=== PATIENT | female | born 1995 | race American Indian/Alaskan Native ===

== ENCOUNTER 2018-04-10 18:31 | Emergency (ER) | payer MEDICAID, OTHER ==
[2018-04-10 18:31] VITALS: BMI 35.0
[2018-04-10] MEDS ORDERED: Lidocaine 2% Jelly (Uro-Jet) TOP ONE (19:06)
[2018-04-10] MEDS ORDERED: Lidocaine 2% Jelly (Uro-Jet) ONE (19:36)
--- NOTE | 2018-04-10 19:46 | C.PDOC ---
History Of Present Illness 23 year old female presents to the ER with a complaint of anal/rectal pain associated with constipation. Patient has a extensive Hx of constipation. She is 22 weeks and was observed at [employer] earlier today with a normal evaluation. Denies fever, chills, nausea, or vomiting. Time Seen by Provider: 04/10/18 18:59 Chief Complaint (Nursing): GI Problem History Per: Patient History/Exam Limitations: no limitations Onset/Duration Of Symptoms: Hrs Recent travel outside of the [place]: No Past Medical History Reviewed: Historical Data, Nursing Documentation, Vital Signs Vital Signs: Last Vital Signs Temp 98.3 F 04/10/18 18:33 Pulse 94 H 04/10/18 18:33 Resp 16 04/10/18 18:33 BP 124/78 04/10/18 18:33 Pulse Ox 97 04/10/18 19:53 Family History: States: Unknown Family Hx - Social History Hx Alcohol Use: No Hx Substance Use: No Review Of Systems Constitutional: Negative for: Fever, Chills Cardiovascular: Negative for: Chest Pain, Palpitations Respiratory: Negative for: Cough, Shortness of Breath Gastrointestinal: Positive for: Rectal Pain. Negative for: Nausea, Vomiting Physical Exam - Physical Exam Appears: Non-toxic, Other (Mild distress) Skin: Normal Color, Warm, Dry Head: Atraumatic, Normacephalic Eye(s): bilateral: Normal Inspection Oral Mucosa: Moist Chest: Symmetrical, No Tenderness Cardiovascular: Rhythm Regular Respiratory: Normal Breath Sounds, No Rales, No Rhonchi, No Wheezing Gastrointestinal/Abdominal: Soft, No Tenderness, Other (Obese, Gravid) Neurological/Psych: Oriented x3, Normal Speech ED Course And Treatment O2 Sat by Pulse Oximetry: 97 (Room air) Pulse Ox Interpretation: Normal Progress Note: Rectal disimpaction perform, urojet used for lubrication, large volume of rock hard stools digitally removed, fleet enema administered to left lateral decubitus, patient reports improvement of symptoms. Medical Decision Making Medical Decision Making: acute on chronic constipation w rectal impaction, 22 wks now disempacted Disposition Doctor Will See Patient In The: Office Counseled Patient/Family Regarding: Studies Performed, Diagnosis - Disposition Disposition: HOME/ ROUTINE Disposition Time: 20:18 Condition: GOOD Forms: [employer] (Swedish) - Clinical Impression Clinical Impression: Constipation - Scribe Statement The provider has reviewed the documentation as recorded by the Scribe Zaheer Davis All medical record entries made by the Scribe were at my direction and personally dictated by me. I have reviewed the chart and agree that the record accurately reflects my personal performance of the history, physical exam, medical decision making, and the department course for this patient. I have also personally directed, reviewed, and agree with the discharge instructions and disposition.
[2018-04-10 20:31] VITALS: BP 128/78; PULSE 81; RESP 18; TEMP 99; O2SAT 98
== END 2018-04-10 20:31 | disposition home or self-care (01) ==
LOC: C.ER 18:31
DX: K59.00 Constipation, unspecified (principal)

== ENCOUNTER 2018-07-12 13:00 | Emergency (ER) | payer OTHER ==
--- NOTE | 2018-07-12 13:57 | OBHP ---
Datetime: 07/12/2018 13:50 IP Adm Impression: , intrauterine IP Admit Plan: Discharge home Admit Comment, IP Provider: A/P: 23 yo at 32+2 wks with EDC 09/03/18 with labial excoriation - stable, afebrile - labial excoration on right side, no vaginal bleeding - Cat 1 tracing, no contractions - previous C/S x1 for preeclampsia and with demise 2nd to prematurity at 26 wks - tana for repeat C/S on 08/27/18 - labor precautions given - pt has U/S appointment tomorrow - D/C home Pelvic Type - PN: Adequate Extremities - PN: Normal Abdomen - PN: Normal Back - PN: Normal Breast - PN: Normal Lungs - PN: Normal Heart - PN: Normal Thyroid - PN: Normal Neurologic - PN: Normal HEENT - PN: Normal General - PN: Normal Presentation-Admit: Vertex FHR - Baseline A Provider: 130 Membranes, Provider: Intact Contraction Comments Provider: quiet Comments, ACOG Physical Exam: minor excoriations on inner labia no vaginal bleeding Gestation - Est Wks by US: 32.2 Pool Provider: Negative EGA AdmitDate IP: 32.2 Vital Signs Provider: Reviewed; Within Normal Limits IP Chief Complaint: Vaginal bleeding NICHD Variability Prov Fetus A: Moderate 6-25bpm NICHD Accel Fetus A IP Provider: 10X10 FHR Category Provider Fetus A: Category I NICHD Decel Fetus A IP Provider: None Dilatation, Provider: C Effacement, Provider: 30 Station, Provider: -3 Genitourinary Exam: Normal DTRs - PN: Normal
--- NOTE | 2018-07-12 14:00 | OBDCSUM ---
Datetime: 07/12/2018 13:58 Discharged to, Provider: Home Follow up at, Provider: Clinic as schedule Disch Instr Activity: Normal activity Disch Instr Diet: Regular Discharge Time: 07/12/2018 13:59 Disch Referrals: None Datetime: 07/12/2018 13:57 Discharged to, Provider: Home Follow up at, Provider: clinic Disch Instr Activity: Normal activity Disch Instr Diet: Regular Discharge Instructions, Provider: Routine instructions given Discharge Time: 07/12/2018 13:57 Follow up in weeks, Provider: 2 weeks Disch Referrals: None Contraception discussed, Prov: No Discharge Diagnosis Prov Other: labial excoriation
[2018-07-12 18:13] VITALS: BP 135/82; PULSE 99; RESP 18; TEMP 98
== END 2018-07-12 14:11 | disposition home or self-care (01) ==
LOC: C.EROB 13:00
DX: O26.893 Other specified pregnancy related conditions, third trimester (principal); S30.814A Abrasion of vagina and vulva, initial encounter; Z3A.32 32 weeks gestation of pregnancy; X58.XXXA Exposure to other specified factors, initial encounter

== ENCOUNTER 2018-08-10 06:40 | Emergency (ER) | payer OTHER ==
--- NOTE | 2018-08-10 10:28 | US ---
Indication: Decreased movement Comparison: None available Technique: Real-time ultrasound was performed through the pelvis. Findings: There is a single living fetus in cephalic presentation. Amniotic fluid volume measures 19 cm, upper limits of normal. Anterior placenta. The placenta is not previa. There are no adnexal masses or cysts evident. The study was performed for the emergent evaluation of decreased movement, and the whole anatomic survey of the fetus was not performed. This should be performed on an outpatient elective basis as clinically warranted. Measurements and calculations: Fetus has a composite sonographic age of 37 weeks 4 days. This calculation is based on the biparietal diameter, head circumference, abdominal circumference, and femur length. Estimated heart rate 123.5 beats per min. Estimated weight 3223 g. Impression: Single living fetus with a composite sonographic age of 37 weeks 4 days. Estimated heart rate 123.5 beats per min. Amniotic fluid volume measures 19 cm, upper limits of normal. Additional findings as above.
[2018-08-10 10:32] LABS: SQUAMOUS EPITHIAL 16 /hpf (0-5); URINE BILIRUBIN NEGATIVE (NEGATIVE); URINE BLOOD 1+ (NEGATIVE); URINE CALCIUM OXALATE CRYSTALS FEW /hpf (<OCC); URINE CLARITY Hazy (Clear); URINE COLOR Yellow (YELLOW); URINE GLUCOSE (UA) NORMAL (Normal); URINE LEUKOCYTE ESTERASE 3+ Leu/uL (Negative); URINE PROTEIN 1+ mg/dL (NEGATIVE); URINE UROBILINOGEN NORMAL mg/dL (0.2-1.0)
[2018-08-10 10:38] LABS: URINE BACTERIA OCC (<OCC)
[2018-08-10 11:34] LABS: INR 1.1; PROTHROMBIN TIME 11.6 SECONDS (9.7-12.2)
[2018-08-10 12:48] LABS: BASO % 0.6 % (0.0-2.0); EOS % 0.6 % (0.0-4.0); HEMOGLOBIN 11.2 g/dL (11.0-16.0); LYMPH # 1.9 K/uL (1.0-4.3); LYMPH % 26.2 % (20.0-40.0); MEAN CELL VOLUME 85.8 fL (81.0-99.0); MEAN CORPUSCULAR HEMOGLOBIN 28.4 pg (27.0-31.0); MEAN CORPUSCULAR HGB CONC 33.1 g/dL (33.0-37.0); MEAN PLATELET VOLUME 10.2 fL (7.2-11.7); MONO # 0.8 K/uL (0.0-0.8); MONO % 11.1 % (0.0-10.0); NEUT # 4.4 K/uL (1.8-7.0); NEUT % 61.5 % (50.0-75.0); NRBC % 0.1 % (0.0-2.0); RBC 3.96 Mil/uL (3.80-5.20); RED CELL DISTRIBUTION WIDTH 13.5 % (11.5-14.5); WHITE BLOOD COUNT 7.1 K/uL (4.8-10.8)
[2018-08-10 12:58] LABS: ALB/GLOB RATIO 1.1 (1.0-2.1); ALBUMIN 3.3 g/dL (3.5-5.0); ALT/SGPT 23 U/L (9-52); AST/SGOT 30 U/L (14-36); BLOOD UREA NITROGEN 7 mg/dL (7-17); GFR NON-AFRICAN AMERICAN > 60
[2018-08-10 13:00] LABS: CREATININE, RANDOM URINE 289.2 mg/dL
--- NOTE | 2018-08-10 16:35 | OBDCSUM ---
Datetime: 08/10/2018 12:26 Discharged to, Provider: Home Follow up at, Provider: clinic Disch Instr Activity: Normal activity Disch Instr Diet: Regular Discharge Instructions, Provider: Routine instructions given Discharge Time: 08/10/2018 12:26 Follow up in weeks, Provider: Today's appointment Disch Referrals: None Contraception discussed, Prov: Yes Disch Activity Restrictions: No exercising; No lifting; Minimize stair-climbing; No sexual activity; Nothing in vagina - [place], tampons, douche Discharge Comment, Provider: Pt is a 23yo female with a PMH pre eclampsia who presents to [facility] complaining of decreased movement upon waking. Pt states she currently feels movem etns. Pt reports mild abdominal discomfort, a couple episodes of non bloody diarrhea. Pt denies any l eakage of fluids, vaginal bleeding, or contractions. Pt reports some mild swelling of her hands and f eet which has occured on/off during this , she has a mild headache but denies visual changes . Pt has had care, but denies taking vitamins. PMH: denies PSH: C/S 2016, 3 TOP's FH: Mother 38. Father 37 SH: denies tobacco, denies alcohol, admits to marijuana use before Home meds: denies Allergies: denies OBGYN: , cycles are 28d, 5 days of bleeding, menarche 14yo. Denies history of STD/ STI. rep rorts c/s at 24 weeks due to preeclampsia in 03/04/2017 and baby at 4 months of age. Pt has had 3 abortions 3 d/c's. Never had a pap smear Assessment and plan - IUP at 36.2 weeks per US at 12 weeks and EDC09/03/18, per [facility] records - NST Reactive and no contractions recorderd, palpated or perceived by patient. - + FM while in here and perceived by patient - PIH labs all WNL, including a P/Cr ratio in urine < 0.1 and pt aware - Serial BP's here all WNL - BPP 04/15 with Nl DANIEL and Cephalic Pt aware of results of US and Labs Aware of Major dehydration noted on UA and advised to increase po water intake Upon further questioning, pt did not know the type of Section performed at 24 weeks gestation at [facility] and states that [facility] has attempted to get records but not able to. I personnally called LD and [facility] and spoke directly with the Senior resident who located the pt's Operative report and confirmed a Classical C/S, which was suspected. The information also included t hat pt had severe HELLP syndrome at that time and spent few days in ICU after delivery to control her elevated BP's. Pt aware of these findings and of the recommendation to have a repeat C/S at 37 weeks instead of 3 9 weeks. A written note was given to the patient and addressed to Dr. Pascal at [facility] since patient had an mayte ointment today at 1300. Also copies of her labs and US were given with her instructions D/C home in Stable and Satisfactory condition. Labor precautions reviewed with patient and verbalized understanding. Pt seen, examined, assessment and plan discussed with Dr Alba Worley PGY1, Internal Medicine Resident Discharge Diagnosis Prov Other: Decreased Movement Previous C/S secondary to severe PreE Dehydration Contraception after Delivery: Undecided
[2018-08-10 16:41] VITALS: BP 115/72; PULSE 85; TEMP 97.8
== END 2018-08-10 12:41 | disposition home or self-care (01) ==
LOC: C.EROB 06:40
DX: O36.8130 Decreased fetal movements, third trimester, not applicable or unspecified (principal); O26.893 Other specified pregnancy related conditions, third trimester; E86.0 Dehydration; Z3A.36 36 weeks gestation of pregnancy

== ENCOUNTER 2018-08-14 05:47 | Inpatient (IN) | payer OTHER ==
[2018-08-14 06:41] VITALS: BMI 41.9
[2018-08-14] MEDS ORDERED: Lactated Ringer's 1,000 ML IV SCH (06:45)
[2018-08-14] MEDS ORDERED: Lactated Ringer's 1,000 ML IV ONE (06:45)
[2018-08-14] MEDS ORDERED: cefOXitin IV 1 gm in Dextrose 1 GM/50 ML BAG IVPB ONE (06:45)
[2018-08-14 07:22] LABS: BASO # 0.1 K/uL (0.0-0.2); BASO % 0.8 % (0.0-2.0); EOS # 0.1 K/uL (0.0-0.7); EOS % 0.6 % (0.0-4.0); HEMOGLOBIN 11.1 g/dL (11.0-16.0); LYMPH % 24.1 % (20.0-40.0); MEAN CELL VOLUME 86.2 fL (81.0-99.0); MEAN CORPUSCULAR HEMOGLOBIN 28.5 pg (27.0-31.0); MEAN CORPUSCULAR HGB CONC 33.1 g/dL (33.0-37.0); MEAN PLATELET VOLUME 9.8 fL (7.2-11.7); MONO # 0.7 K/uL (0.0-0.8); MONO % 8.8 % (0.0-10.0); NEUT # 5.5 K/uL (1.8-7.0); NEUT % 65.7 % (50.0-75.0); NRBC % 0.1 % (0.0-2.0); RBC 3.91 Mil/uL (3.80-5.20); RED CELL DISTRIBUTION WIDTH 13.5 % (11.5-14.5); WHITE BLOOD COUNT 8.3 K/uL (4.8-10.8)
[2018-08-14] MEDS ORDERED: Sodium Citrate/Citric Acid 15 ml Sol PO ONE (07:30)
--- NOTE | 2018-08-14 07:34 | OBADHP ---
Datetime: 08/14/2018 06:55 Admit Comment, IP Provider: 23 y.o. , LMP 11/06/17, JOHN 09/03/18 EGA 37w 1d previous Classical C/S at 26 weeks for elective repeat C/S. (+) AFM; denies LOF, VB, Ctx. Denies headaches, blurred vis ion, spots. care: [facility] - reports no issues. P Ob: 03/04/17, Classical C/S, 26 weeks, severe Pre-eclampsia, [facility]; hospital stay x 1 week. Infant in NICU x 4 months; at 4 months VTOP x 3, 2011, 2013, 2015, all at 6 weeks, all with D_C; no c omplications P NETWORK SUPPORT ENGINEER: 12 x monthly x 5. Denies h/o STIs, myomata, ovarian cysts. Not a candidiate for Pap PMH: severe pre-eclampsia PSH: D_C x 3; C/S NKDA Meds: not taking vitamns Soc Hx: denies tobacco, illicit drug or EtOH use. Lives with her mother. With FOB x 10 years Fam Hx: Mother alive 39y.o. Father alive 38 y.o. - both, no med issues. P.E.: as above. Obese, in NAD. Awake, alert, oriented to time, person and place. Cooperative Assessment: 23 y.o. G5 :0130, 37w 1d, prev Classical C/S, prev delivery, h/o severe pre-ec lampsia for elective repeat C/S. Category 1 tracing. Patient last ate and drank at 2330 hours. Case e ndorsed to oncoming attending who will obtain pertinent consents. Patient is clinically stable. Plan: 1) Admit 2) NPO 3) Admission and pre-eclamptic labs 4) IVFs 5) Continuous EFM 6) Abdomen prep and shave 7) Watson 8) Mefoxin, building construction supervisor to O.R. 9) Notify anesthesia 10) Notify peds 11) Patient building construction supervisor to O.R. Pelvic Type - PN: Not Done Extremities - PN: Normal Abdomen - PN: Normal Back - PN: Normal Breast - PN: Not Done Lungs - PN: Normal Heart - PN: Normal Thyroid - PN: Not Done Neurologic - PN: Normal HEENT - PN: Normal General - PN: Normal FHR - Baseline A Provider: 145 Contraction Comments Provider: irregular Comments, ACOG Physical Exam: Abdomen: Obesity. Gravid. Soft. Healed Pfannenstiel scar. Fundal heigh t 40cm Extremities: no calf tenderness or edema All other systems reviewed and are negative Gestation - Est Wks by US: 37w 1d IP Hx Assessment: The History has been Reviewed and is Current Vital Signs Provider: Reviewed; Within Normal Limits IP Chief Complaint: Scheduled Section NICHD Variability Prov Fetus A: Moderate 6-25bpm NICHD Accel Fetus A IP Provider: 15X15 FHR Category Provider Fetus A: Category I NICHD Decel Fetus A IP Provider: None Dilatation, Provider: deferred Genitourinary Exam: Not Done DTRs - PN: Not Done EGA AdmitDate IP: 37.1 IP Adm Impression: Term, intrauterine ; No Active Labor IP Admit Plan: Admit to unit; Initiate Section protocol Datetime: 08/10/2018 09:13 Presentation-Admit: Vertex Membranes, Provider: Intact Vital Signs Provider Details: Serial BP's WNL Datetime: 07/12/2018 13:50 Pool Provider: Negative Effacement, Provider: 30 Station, Provider: -3
[2018-08-14 07:43] LABS: SQUAMOUS EPITHIAL 7 /hpf (0-5); URINE BACTERIA RARE (<OCC); URINE BILIRUBIN NEGATIVE (NEGATIVE); URINE BLOOD NEGATIVE (NEGATIVE); URINE CLARITY Clear (Clear); URINE COLOR Yellow (YELLOW); URINE GLUCOSE (UA) NORMAL (Normal); URINE LEUKOCYTE ESTERASE 3+ Leu/uL (Negative); URINE PROTEIN NEGATIVE (NEGATIVE); URINE UROBILINOGEN NORMAL mg/dL (0.2-1.0)
[2018-08-14] MEDS ORDERED: Morphine 1 mg/ml preservative-free Inj(Duramorph) ONE (07:43)
[2018-08-14 07:59] LABS: PROTHROMBIN TIME 10.9 SECONDS (9.7-12.2)
[2018-08-14] MEDS ORDERED: Sodium Citrate/Citric Acid 15 ml Sol ONE (08:00)
[2018-08-14] MEDS ORDERED: Oxytocin 20 units in LR 2,000 ML IV ONE (08:01)
[2018-08-14] MEDS ORDERED: cefOXitin IV 2 gm in Saline 2 GM/50 ML BAG IVPB ONE (08:01)
[2018-08-14 08:11] LABS: ALBUMIN 3.2 g/dL (3.5-5.0); ALT/SGPT 20 U/L (9-52); AST/SGOT 22 U/L (14-36); BLOOD UREA NITROGEN 7 mg/dL (7-17); CALCIUM 8.9 mg/dl (8.6-10.4); GFR NON-AFRICAN AMERICAN > 60; URIC ACID 4.7 mg/dL (2.2-7.5)
[2018-08-14 10:12] LABS: BARBITURATES, UR NEGATIVE (NEGATIVE); BENZODIAZEPINES, UR NEGATIVE (NEGATIVE); OPIATES, UR NEGATIVE (NEGATIVE); PHENCYCLIDINE, UR NEGATIVE (NEGATIVE)
--- NOTE | 2018-08-14 12:19 | OBDS ---
DELIVERY PERSONNEL Delivery Doctor: DR ANTUNEZ Insurance Instructor: Aramis Khalil RN Anesthesiologist: DR Weathers MATERNAL INFORMATION Delivery Anesthesia: Spinal Medications in Delivery: PITOCIN 20 Estimated Blood Loss (ml): 800 Placenta Cultured: No Maternal Complications: Other Other Maternal Complications: PREECLAMPCIA FOR LAST Provider Comments: Pre-Op Dx: Scheduled Repeat C/S; lysis of adhesions Post- Op Dx: same Procedure: LTCS via pfannensteil incision EBL: 800 IVF: 1LR Urine: 700cc Specimen: none Complications: vacuum extraction see dictation viable male infant apgars 9/9 wt 6lb 9oz LABOR SUMMARY EDC: 09/03/2018 00:00 No. Babies in Womb: 1 Attempted: No Labor Anesthesia: None LABOR INFORMATION Reason for Induction: Not Applicable Oxytocin: N/A Group B Beta Strep: Positive Antibiotics # of Doses: 1 Antibiotics Time of Last Dose: 10;00 Steroids Given: None MEMBRANES Membranes Rupture Method: Spontaneous Rupture of Membranes: 08/14/2018 10:54 Length of Rupture (hrs): 0.03 Amniotic Fluid Color: Clear Amniotic Fluid Amount: None Amniotic Fluid Odor: Normal STAGES OF LABOR Stage 3 hrs: 0 Stage 3 min: 1 CSECTION DELIVERY Primary Indication: Repeat Elective CSection Urgency: N/A CSection Incidence: N/A Labor: N/A Elective: N/A CSection Incision: Lower Uterine Transverse BABY A INFORMATION Delivery Date/Time: 08/14/2018 10:56 Method of Delivery: Born in Route : No : N/A Forceps: N/A Vacuum Extraction: Successful Shoulder Dystocia : No SHOULDER DYSTOCIA BABY A Delivery Date/Time: 08/14/2018 10:56 PRESENTATION/POSITION BABY A Presentation: Cephalic Cephalic Presentation: Vertex Breech Presentation: N/A PLACENTA INFORMATION BABY A Placenta Delivery Time : 08/14/2018 10:57 Placenta Method of Delivery: Expressed Placenta Status: Delivered SCORES BABY A Heart Rate 1 min: >100 bpm Resp Effort 1 min: Good Cry Reflex Irritability 1 min: Cough or Sneeze or Pulls Away Muscle Tone 1 min: Active Motion Color 1 min: Body [place], Extremities Blue Resuscitation Effort 1 min: Tactile Stimulation SCORE 1 MIN: 9 Heart Rate 5 min: >100 bpm Resp Effort 5 min: Good Cry Reflex Irritability 5 min: Cough or Sneeze or Pulls Away Muscle Tone 5 min: Active Motion Color 5 min: Body [place], Extremities Blue SCORE 5 MIN: 9 INFANT INFORMATION BABY A Gestational Age at Delivery: 37.0 Gestational Status: Term Outcome : Liveborn Infant Condition : Stable Sex: Male IDENTIFICATION/MEDS BABY A ID Band Number: [id number] ID Band Location: Left Leg; Left Arm Sensor Applied: Yes Sensor Number: [id number] Sensor Location : Cord Clamp Vitamin K Given : Aquamephyton 1 mg IM; Left Thigh Erythromycin Given: Given Both Eyes WEIGHT/LENGTH BABY A Birthweight (gms): 2990 Weight (lb): 6 Infant Weight (oz): 9 Infant Length Inches: 18.75 (Annotations: Data stored by N on behalf of user) Infant Length cms: 47.6 CORD INFORMATION BABY A No. Cord Vessels: 3 Nuchal Cord : Around Neck x1, Tight Cord pH Baby Arterial: 7.07 Infant Cord pH Baby Venous: 7.23 Cord Blood Taken: Yes Suction: Mouth; Nose ASSESSMENT BABY A Infant Complications: None Physical Findings at Delivery: Within Normal Limits Infant Respirations: Appears Normal Certified Financial Planner/ALS Called : No Care By: dr kerr Transferred To: Remains with Mother
[2018-08-14] MEDS ORDERED: Oxycodone/Acetaminophen 5/325 mg Tab PO PRN (13:42)
[2018-08-14] MEDS: Simethicone 80 mg Chewtab PO SCH ×3 (15:12→21:25)
[2018-08-15] MEDS: Oxycodone/Acetaminophen 5/325 mg Tab PO PRN ×2 (05:07→20:03)
[2018-08-15 07:28] LABS: HEMOGLOBIN 9.7 g/dL (11.0-16.0); MEAN CELL VOLUME 85.3 fL (81.0-99.0); MEAN CORPUSCULAR HEMOGLOBIN 28.6 pg (27.0-31.0); MEAN CORPUSCULAR HGB CONC 33.6 g/dL (33.0-37.0); MEAN PLATELET VOLUME 10.1 fL (7.2-11.7); RBC 3.4 Mil/uL (3.80-5.20); RED CELL DISTRIBUTION WIDTH 13.8 % (11.5-14.5)
[2018-08-15 07:43] LABS: WHITE BLOOD COUNT 12.5 K/uL (4.8-10.8)
[2018-08-15] MEDS ORDERED: DiphenhydrAMINE 50 mg/ml Inj IVP STA (07:45)
[2018-08-15] MEDS: Prenatal Multivit/Folic Acid/Iron Tab PO SCH (09:25)
[2018-08-15] MEDS: Simethicone 80 mg Chewtab PO SCH ×4 (09:25→22:24)
--- NOTE | 2018-08-15 10:44 | OBPPN ---
Datetime: 08/15/2018 10:23 PP Pain Prov: Within normal limits PP Nausea Prov: Denies PP Flatus Prov: No PP BM Prov: No PP Breasts Prov: Normal PP Heart Prov: Normal PP Lungs Prov: Normal PP Abdomen/Uterus Prov: Normal PP Lochia Prov: Normal PP Vulva/Perineum Prov: Not Done PP CVA Tenderness Prov: Normal PP Extremities Prov: Normal PP C/S Incision Prov: Normal PP Progress Prov: Normal PP Comments Phys Exam Prov: Abdomen: Obese. Hypoacative BS. Softly distended. Fundus firm, (+) appro priately tenderness. Incision with carmen - clean, dry and intact. Mild lochia rubra Extremities: no calf tenderness; trace calf and pedal edema, bilaterally All other systems reviewed and are negative PP Impression Prov: Normal progression PP Plan Prov: Continue present management PP Progress Note Prov: Patient receive din room 42, getting back into bed. Deneis nausea, vomiting a fter breakfast. Denies flatus or BM. Denies headaches, chest pain, lightheadedness, palpitations, scott rtness of breath. Ambulating to bathroom; (+) voiding without difficulty. Desires to breastfeed; curr ently bottlefeeding. P.E.: as above. Obese in NAD. Awake, alert, oriented to time, person and place. Pleasant and coope rative. FOB present - POD#1 H/H 9.7 Rh(+) Assessment: POD#1, 23 y.o. P1131, S/P LTCS with h/o prev Classical C/S. H/O severe pre-eclampsia: BPs wnl. Afebrile, vital signs stable. Returning GI and functions. Patient encouraged to ambulate in the hallway. Acute blood loss anemia - asymptomatic and hemodynamically stable. Will start iron s upplementation. Patient is clincially stable. Plan: 1) Start iron supplementation 2) Continue post op/ care Vital Signs Provider PP: Reviewed; Within Normal Limits
[2018-08-16] MEDS: Oxycodone/Acetaminophen 5/325 mg Tab PO PRN (06:09)
--- NOTE | 2018-08-16 07:39 | OBPPN ---
Datetime: 08/16/2018 07:36 PP Pain Prov: Within normal limits PP Nausea Prov: Denies PP Flatus Prov: Yes PP Abdomen/Uterus Prov: Normal PP Lochia Prov: Normal PP Extremities Prov: Normal PP C/S Incision Prov: Normal PP Impression Prov: Normal progression PP Plan Prov: Continue present management PP Progress Note Prov: pt was seen at ed side, pain under control,no n/v,tolerting deit, voiding , m in loc, flatus+ pod#2 s/p c/s cont post p care cont pain ma encourage ambulation Vital Signs Provider PP: Reviewed; Within Normal Limits
[2018-08-16] MEDS: Simethicone 80 mg Chewtab PO SCH ×4 (09:04→22:06)
[2018-08-16] MEDS: Prenatal Multivit/Folic Acid/Iron Tab PO SCH (09:04)
[2018-08-16 09:19] LABS: BASO % 0.3 % (0.0-2.0); EOS % 1.1 % (0.0-4.0); HEMOGLOBIN 9.4 g/dL (11.0-16.0); LYMPH # 1.7 K/uL (1.0-4.3); LYMPH % 19.8 % (20.0-40.0); MEAN CELL VOLUME 86.8 fL (81.0-99.0); MEAN CORPUSCULAR HEMOGLOBIN 28.9 pg (27.0-31.0); MEAN CORPUSCULAR HGB CONC 33.3 g/dL (33.0-37.0); MEAN PLATELET VOLUME 8.6 fL (7.2-11.7); MONO # 0.9 K/uL (0.0-0.8); MONO % 10.1 % (0.0-10.0); NEUT # 5.8 K/uL (1.8-7.0); NEUT % 68.7 % (50.0-75.0); RBC 3.26 Mil/uL (3.80-5.20); RED CELL DISTRIBUTION WIDTH 13.8 % (11.5-14.5); WHITE BLOOD COUNT 8.5 K/uL (4.8-10.8)
[2018-08-16 09:20] LABS: EOS # 0.1 K/uL (0.0-0.7)
[2018-08-17 08:22] VITALS: BP 122/80; PULSE 87; RESP 18; TEMP 97.7; O2SAT 100
--- NOTE | 2018-08-17 08:50 | OBPPN ---
Datetime: 08/17/2018 08:47 PP Pain Prov: Within normal limits PP Nausea Prov: Denies PP Flatus Prov: Yes PP BM Prov: Yes PP Comments Phys Exam Prov: normal cardiac sounds lungs clear abdomen soft, obese, +BS, NTND carmen in place, clean/dry/intact no calf pain PP Impression Prov: Normal progression PP Plan Prov: Continue present management; Discharge PP Progress Note Prov: s/p repeat CS POD #3 vitals stable, afebrile labs reviewed, within normal limits contiue vitamins, hydration encouraged ambulation recommended pelvic rest and follow up withing 5-7 days for wound check and BP check pain control and wound care explained
--- NOTE | 2018-08-17 09:04 | OBDCSUM ---
Datetime: 08/17/2018 08:59 Discharged to, Provider: Home Follow up at, Provider: clinic Disch Instr Activity: Normal activity Disch Instr Diet: Regular Discharge Instructions, Provider: Routine instructions given Discharge Diagnosis, Provider: Term Delivered Discharge Time: 08/17/2018 08:59 Follow up in weeks, Provider: 1 week Disch Referrals: None Contraception discussed, Prov: Yes Disch Activity Restrictions: No sexual activity; Nothing in vagina - [place], tampons, douche Contraception after Delivery: Undecided
[2018-08-17] MEDS ORDERED: Influenza Vaccine 60 MCG/0.5 ML SYR (3 yr & up) IM ONE (10:00)
[2018-08-17] MEDS: Prenatal Multivit/Folic Acid/Iron Tab PO SCH (10:27)
[2018-08-17] MEDS: Simethicone 80 mg Chewtab PO SCH (10:27)
== END 2018-08-17 13:45 | disposition home or self-care (01) | DRG 370 ==
LOC: C.EROB 05:47 → C.4D 06:44 → C.4M 14:15
PROVIDERS: ADMIT Obstetrics & Gynecology; ATTEND Obstetrics & Gynecology
PROC: 10D00Z1 Extraction of Products of Conception, Low, Open Approach (ICD-10-PCS; principal; 2018-08-14)
DX: O34.211 Maternal care for low transverse scar from previous cesarean delivery (principal); O99.02 Anemia complicating childbirth; D62 Acute posthemorrhagic anemia; O69.1XX0 Labor and delivery complicated by cord around neck, with compression, not applicable or unspecified; O99.214 Obesity complicating childbirth; E66.9 Obesity, unspecified; Z87.51 Personal history of pre-term labor; Z3A.37 37 weeks gestation of pregnancy; Z37.0 Single live birth

== ENCOUNTER 2018-11-21 03:45 | Emergency (ER) | payer SELFPAY ==
[2018-11-21 03:46] VITALS: BMI 41.9
--- NOTE | 2018-11-21 05:16 | C.PDOC ---
History Of Present Illness 23 year old female presents to the ED by EMS for evaluation of fever, generalized body aches and cough for the past 2 days. Patient denies nausea, vomit, diarrhea, abdominal pain, rash, recent travel, sick contacts. Time Seen by Provider: 11/21/18 04:03 Chief Complaint (Nursing): Flu-like Symptoms History Per: Patient History/Exam Limitations: no limitations Onset/Duration Of Symptoms: Days (2) Current Symptoms Are (Timing): Still Present Location Of Pain: Sinus/es, Diffuse Myalgias Sick Contacts (Context): None Associated Symptoms: Fever, Cough, Sinus Drainage, Nasal Congestion Ear Symptoms: Bilateral: None Recent travel outside of the [place]: No Additional History Per: Patient Past Medical History Reviewed: Historical Data, Nursing Documentation, Vital Signs Vital Signs: Last Vital Signs Temp 101 F H 11/21/18 04:00 Pulse 96 H 11/21/18 04:00 Resp 16 11/21/18 04:00 BP 124/71 11/21/18 04:00 Pulse Ox 97 11/21/18 04:00 - Medical History PMH: No Chronic Diseases Denies: Chronic Kidney Disease Surgical History: No Surg Hx - [facility] Procedures EXTRACTION OF POC, LOW CERVICAL, OPEN APPROACH (08/14/18) Family History: States: Unknown Family Hx - Social History Hx Alcohol Use: Yes Hx Substance Use: No Review Of Systems Constitutional: Positive for: Fever, Malaise. Negative for: Chills ENT: Positive for: Nose Discharge, Nose Congestion Respiratory: Positive for: Cough. Negative for: Shortness of Breath, Sputum, Wh eezing Gastrointestinal: Negative for: Nausea, Vomiting, Abdominal Pain Skin: Negative for: Rash Neurological: Negative for: Weakness, Numbness, Headache Physical Exam - Physical Exam Appears: Non-toxic, No Acute Distress Skin: Normal Color, Warm, Dry Head: Atraumatic, Normacephalic Eye(s): bilateral: Normal Inspection Ear(s): Bilateral: Normal Oral Mucosa: Moist Throat: Normal, No Erythema, No Exudate Neck: Normal ROM, Supple Chest: Symmetrical Cardiovascular: Rhythm Regular Respiratory: Normal Breath Sounds, No Rales, No Rhonchi, No Wheezing Gastrointestinal/Abdominal: Soft, No Tenderness, No Guarding, No Rebound Extremity: Normal ROM Neurological/Psych: Oriented x3, Normal Speech, Normal Cognition Gait: Steady ED Course And Treatment O2 Sat by Pulse Oximetry: 97 (ON RA) Pulse Ox Interpretation: Normal Progress Note: Plan: - Motrin 600 mg PO. - Tamiflu 75 mg PO. Patient was treated empirically for flu, given the first dose of Tamiflu in the ED. Patient's temperature improved, remained stable and in no acute distress. Patient advised to follow up with PMD. Disposition Counseled Patient/Family Regarding: Diagnosis, Need For Followup - Disposition Referrals: [facility] [Outside] Disposition: HOME/ ROUTINE Disposition Time: 05:11 Condition: STABLE Additional Instructions: Increase PO fluids Take medications as directed Return to ER if worse Prescriptions: Benzonatate [Tessalon Perles] 200 mg PO TID #14 sgl Ibuprofen [Motrin] 600 mg PO Q6H #20 tab Oseltamivir Cap [Tamiflu] 75 mg PO BID #10 cap Instructions: Flu, Adult (DC) Forms: [employer] ([place]) - Clinical Impression Clinical Impression: Influenza-like illness - PA / CHARTERED ACCOUNTANT / Resident Statement MD/DO has reviewed & agrees with the documentation as recorded. - Scribe Statement The provider has reviewed the documentation as recorded by the Scribe [place] All medical record entries made by the Bronwynibremigio were at my direction and personally dictated by me. I have reviewed the chart and agree that the record accurately reflects my personal performance of the history, physical exam, medical decision making, and the department course for this patient. I have also personally directed, reviewed, and agree with the discharge instructions and disposition.
[2018-11-21 06:10] VITALS: BP 147/78; PULSE 87; RESP 17; TEMP 98
[2018-11-23 20:24] VITALS: O2SAT 97
== END 2018-11-21 06:10 | disposition home or self-care (01) ==
LOC: C.ER 03:45
DX: J11.1 Influenza due to unidentified influenza virus with other respiratory manifestations (principal)

== ENCOUNTER 2019-01-27 10:19 | Emergency (ER) | payer MEDICAID | END 2019-01-27 11:57 | disposition home or self-care (01) | LOC: C.ER 10:19 ==